=== PATIENT | male | born 2000 | race African-American/Black ===

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

== ENCOUNTER 2020-06-28 03:48 | Emergency (ER) | payer SELFPAY ==
--- NOTE | 2020-06-28 08:53 | EDM.PDOC ---
ED HPI GENERAL MEDICAL PROBLEM - General Chief Complaint: Upper Extremity Injury/Pain Stated Complaint: HAND INJURY Time Seen by Provider: 06/28/20 04:05 Source of Information: Reports: Patient - History of Present Illness INITIAL COMMENTS - FREE TEXT/NARRATIVE: Had a in injury to right hand a few weeks ago,and has pain and swelling persisting since.Was seen a t the [facility] where an X ray was negative. Nothing seems to help,worse with movement.Pain dull ache,moderate,with no radiation right hand Pain Score (Numeric/FACES): 6 - Related Data Allergies Allergy/AdvReac Type Severity Reaction Status Date / Time No Known Allergies Allergy Verified 06/28/20 03:52 Home Meds: Home Meds NK [No Known Home Meds] 01/31/18 [History] Past Medical History - Past Health History Medical/Surgical History: Denies Medical/Surgical History Social & Family History - Family History Family Medical History: Noncontributory - Tobacco Use Tobacco Use Status *Q: Never Tobacco User - Caffeine Use Caffeine Use: Reports: Coffee - Recreational Drug Use Recreational Drug Use: No Review of Systems - Review of Systems Review Of Systems: Comprehensive ROS is negative, except as noted in HPI. ED EXAM, GENERAL - Physical Exam Exam: See Below Free Text/Narrative:: Slight edema and tenderness at the 3rd MCP joint. Full ROM. Exam Limited By: No Limitations General Appearance: Alert Psychiatric: Normal Affect Skin Exam: Warm Course - Vital Signs Last Recorded V/S: Last Vital Signs Temp 97.3 F 06/28/20 03:58 Pulse 66 06/28/20 03:58 Resp 16 06/28/20 03:58 BP 124/64 06/28/20 03:58 Pulse Ox 100 06/28/20 03:58 - Orders/Labs/Meds Orders: Active Orders 24 hr Category Date Time Status Hand Comp Min 3V Rt [CR] Stat Exams 06/28/20 03:55 Taken Departure - Departure Time of Disposition: 04:15 Disposition: Home, Self-Care 01 Condition: Good Clinical Impression: Sprain, hand - Discharge Information Instructions: Hand Contusion Forms: ED Department Discharge Care Plan Goals: Ice to hand 4 times a day for 20 minutes. Use Ibuprofen or Tylenol as needed Follow up at walk in clinic or other clinic for further orders Sepsis Event Note (ED) - Evaluation Sepsis Screening Result: No Definite Risk - Focused Exam Vital Signs: Vital Signs Temp Pulse Resp BP Pulse Ox 06/28/20 03:58 97.3 F 66 16 124/64 100 - Problem List & Annotations (1) Sprain, hand SNOMED Code(s): 65642577 Code(s): S63.90XA - SPRAIN OF UNSP PART OF UNSP WRIST AND HAND, INIT ENCNTR Status: Acute Qualifiers: Encounter type: subsequent encounter Laterality: right Qualified Code(s): S63.91XD - Sprain of unspecified part of right wrist and hand, subsequent encounter - Problem List Review Problem List Initiated/Reviewed/Updated: Yes - My Orders Last 24 Hours: My Active Orders 06/28/20 03:55 Hand Comp Min 3V Rt [CR] Stat - Assessment/Plan Last 24 Hours: My Active Orders 06/28/20 03:55 Hand Comp Min 3V Rt [CR] Stat Plan: Xray was repeated today,and was negative.I advised a follow up with PCP,consider PT,and CT or MRI. NSAIDs suggested for pain control.
--- NOTE | 2020-06-28 11:31 | CR ---
INDICATION: Reinjury - dropped a 15-pound weight on right hand, pain third and fourth metacarpophalangeal area. RIGHT HAND: Three views of the right hand were obtained 06/28/20 and were compared with 06/04/20. Soft tissue swelling is noted overlying the dorsum of the hand at the level of the metacarpophalangeal joints and may be slightly increased compared with the previous study. However, no underlying bone or joint abnormality, fracture or dislocation, was identified. Normal bone density is noted. If symptoms persist - if occult fracture site is suspected clinically, reexamination in 10-14 days may be helpful. MTDD
== END 2020-06-28 04:25 | disposition home or self-care (01) ==
LOC: FB.ED 03:48
DX: S63.91XA Sprain of unspecified part of right wrist and hand, initial encounter (principal); X58.XXXA Exposure to other specified factors, initial encounter
CPT/HCPCS: 73130-RT; 99283

== ENCOUNTER 2020-11-10 23:52 | Emergency (ER) | payer SELFPAY ==
--- NOTE | 2020-11-11 00:12 | EDM.PDOC ---
ED HPI GENERAL MEDICAL PROBLEM - General Stated Complaint: swollen tonsils Time Seen by Provider: 11/11/20 00:10 Source of Information: Reports: Patient History Limitations: Reports: No Limitations - History of Present Illness INITIAL COMMENTS - FREE TEXT/NARRATIVE: Complains of upper chest pain,swollen tonsils and difficulty breathing x 4days. No cough,fever or chills. He does smoke and vape at times. - Related Data Allergies Allergy/AdvReac Type Severity Reaction Status Date / Time No Known Allergies Allergy Verified 06/28/20 03:52 Home Meds: Home Meds NK [No Known Home Meds] 01/31/18 [History] Past Medical History - Past Health History Medical/Surgical History: Denies Medical/Surgical History Social & Family History - Family History Family Medical History: No Pertinent Family History - Caffeine Use Caffeine Use: Reports: Coffee ED ROS GENERAL - Review of Systems Review Of Systems: Comprehensive ROS is negative, except as noted in HPI. ED EXAM, GENERAL - Physical Exam Exam: See Below Exam Limited By: No Limitations General Appearance: Alert, WD/WN Ears: Normal External Exam Ear Exam: Bilateral Ear: Auricle Normal, Canal Normal, TM normal Nose: Normal Inspection, Nasal Flaring Head: Atraumatic Neck: Normal Inspection Respiratory/Chest: No Accessory Muscle Use Cardiovascular: Normal Peripheral Pulses Departure - Departure Time of Disposition: 00:11 Disposition: Home, Self-Care 01 Clinical Impression: Sore throat (viral) - Discharge Information Instructions: Pharyngitis, Sore Throat, [id number] Referrals: PCP,None [Primary Care Provider] - Additional Instructions: Read information on Pharyngitis and sore throat. Follow up with primary care provider if symptoms aren't improving. - Problem List & Annotations (1) Sore throat (viral) SNOMED Code(s): 2959323 Code(s): J02.8 - ACUTE PHARYNGITIS DUE TO OTHER SPECIFIED ORGANISMS; B97.89 - OTH VIRAL AGENTS THE CAUSE OF DISEASES CLASSD [id number] Status: Acute Current Visit: Yes - Problem List Review Problem List Initiated/Reviewed/Updated: Yes - Assessment/Plan Plan: Reassurance
== END 2020-11-11 00:18 | disposition home or self-care (01) ==
LOC: FB.ED 23:52
DX: J02.9 Acute pharyngitis, unspecified (principal)
CPT/HCPCS: 99284

== ENCOUNTER 2023-07-26 18:13 | Emergency (ER) | payer SELFPAY | END 2023-07-26 20:30 | disposition home or self-care (01) | LOC: FB.ED 18:13 | DX: S29.012A Strain of muscle and tendon of back wall of thorax, initial encounter (principal); S46.912A Strain of unspecified muscle, fascia and tendon at shoulder and upper arm level, left arm, initial encounter; S40.012A Contusion of left shoulder, initial encounter; S20.222A Contusion of left back wall of thorax, initial encounter; W10.9XXA Fall (on) (from) unspecified stairs and steps, initial encounter | CPT/HCPCS: 72072; 72100; 73030-LT; 99283 ==

== ENCOUNTER 2025-01-12 17:52 | Emergency (ER) | payer SELFPAY ==
[2025-01-12] MEDS ORDERED: Lidocaine 1% 5 ML VIAL INFILT ONE (17:53)
== END 2025-01-12 18:40 | disposition home or self-care (01) ==
LOC: FB.ED 17:52
DX: S61.411A Laceration without foreign body of right hand, initial encounter (principal); F17.200 Nicotine dependence, unspecified, uncomplicated; W26.0XXA Contact with knife, initial encounter
CPT/HCPCS: 12001; 99282; J2003